=== PATIENT | male | born 1985 | race Caucasian/White ===

== ENCOUNTER 2016-11-25 08:28 | Emergency (ER) | payer OTHER, SELFPAY ==
[2016-11-25] MEDS ORDERED: Ondansetron ODT 4 MG TAB ONE (08:57)
== END 2016-11-25 08:44 | disposition home or self-care (01) ==
LOC: ERS 08:28
DX: Z02.89 Encounter for other administrative examinations (principal); F31.9 Bipolar disorder, unspecified
CPT/HCPCS: 99283; Q0162

== ENCOUNTER 2019-07-26 13:50 | Emergency (ER) | payer SELFPAY ==
[2019-07-26] MEDS ORDERED: Adacel (T-DAP) 0.5 ML SYRINGE ONE (15:26)
== END 2019-07-26 15:35 | disposition home or self-care (01) ==
LOC: ERS 13:50
DX: L02.01 Cutaneous abscess of face (principal); F31.9 Bipolar disorder, unspecified
CPT/HCPCS: 10160; 90471; 90715

== ENCOUNTER 2019-09-20 17:53 | Emergency (ER) | payer SELFPAY ==
[2019-09-20] MEDS ORDERED: Ketorolac Tromethamine 30 MG/ML VIAL ONE (18:36)
[2019-09-20] MEDS ORDERED: Lidocaine 1% w/Epinephrine 1:100K 20 ML VIAL ONE (18:36)
[2019-09-20 18:39] LABS: #Basophils 0.1 thou/uL (0.0-0.2); #Eosinphils 0.3 thou/uL (0.0-0.7); #Lymphocytes 1.5 thou/uL (1.20-3.40); #Monocytes 0.6 thou/uL (0.11-0.59); #Neutrophils 6.7 thou/uL (1.40-6.50); %Basophils 0.8 % (0.0-1.0); %Lymphocytes 15.9 % (21.0-51.0); %Monocytes 6.2 % (0.0-10.0); %Neutrophils 74.1 % (42.0-75.0); Hemoglobin 15.3 g/dL (14.0-18.0); Mean Corpuscular HGB CONC 34.9 g/dL (32.0-36.0); Mean Corpuscular Hemoglobin 33.5 pg (27.0-31.0); Mean Corpuscular Volume 96.1 fL (78.0-98.0); Mean Platelet Volume 7.1 fL (7.4-10.4); Platelet Count 336 thou/uL (130-400); RBC Distribution Width 11.3 % (11.5-14.5); Red Blood Cell (RBC) Count 4.55 mill/uL (4.70-6.10); White Blood Cell (WBC) Count 9.1 thou/uL (4.8-10.8)
[2019-09-20] MEDS ORDERED: Clindamycin/D5W 900 mg/50 ml Premix Bag ONE (18:39)
[2019-09-20 19:02] LABS: ALT (SGPT) 27 U/L (8-55); AST (SGOT) 21 U/L (5-34); Albumin 4.3 g/dL (3.5-5.0); Alkaline Phosphatase 71 U/L (40-110); Anion Gap 11 mmol/L (10-20); BUN (Urea Nitrogen) 16 mg/dL (8.9-20.6); Bilirubin, Total 0.3 mg/dL (0.2-1.2); Calc. Creatinine Clearance 0 mL/min (70-130); Calcium 9.4 mg/dL (7.8-10.44); Carbon Dioxide 28 mmol/L (22-29); Chloride 105 mmol/L (98-107); Estimated GFR-MDRD 83; Globulin 2.6 g/dL (2.4-3.5); Glucose 101 mg/dL (70-105); Potassium 4.1 mmol/L (3.5-5.1); Protein, Total 6.9 g/dL (6.0-8.3); Sodium 140 mmol/L (136-145)
== END 2019-09-20 19:45 | disposition home or self-care (01) ==
LOC: ERS 17:53
DX: L72.3 Sebaceous cyst (principal); F31.9 Bipolar disorder, unspecified
CPT/HCPCS: 10060; 80053; 85025; 96365; J1885; J3490

== ENCOUNTER 2020-08-19 21:03 | Emergency (ER) | payer BC, SELFPAY | END 2020-08-19 21:53 | disposition home or self-care (01) | LOC: ERS 21:03 | DX: R42 Dizziness and giddiness (principal); F17.210 Nicotine dependence, cigarettes, uncomplicated | CPT/HCPCS: 99283 ==

== ENCOUNTER 2024-09-25 21:48 | Emergency (ER) | payer SELFPAY | END 2024-09-26 01:43 | disposition home or self-care (01) | LOC: ERS 21:48 | DX: K94.02 Colostomy infection (principal); F17.210 Nicotine dependence, cigarettes, uncomplicated | CPT/HCPCS: 99282 ==

== ENCOUNTER 2024-10-01 00:30 | Emergency (ER) | payer SELFPAY ==
[2024-10-01] MEDS ORDERED: Ketorolac Tromethamine 30 MG (1 mL) VIAL ONE (00:52)
[2024-10-01] MEDS ORDERED: diphenhydrAMINE 50 MG/ML VIAL ONE (00:52)
[2024-10-01] MEDS ORDERED: Benzonatate 100 MG CAP ONE (01:57)
== END 2024-10-01 02:26 | disposition home or self-care (01) ==
LOC: ERS 00:30
DX: J06.9 Acute upper respiratory infection, unspecified (principal); F17.210 Nicotine dependence, cigarettes, uncomplicated
CPT/HCPCS: 87081; 87426; 87430; 96374; 96375; J1200; J1885; J2919